=== PATIENT | female | born 1985 | race Caucasian/White ===

== ENCOUNTER → 2016-10-23 | Outpatient (CLI) | payer BC ==
[~2016-10-23] MED LIST: CIPR-212 PO; DOCU-168 PO; HYDR-4074 PO; LORA1TAB3 PO; NAPR220C11 PO; OMEP40CA PO; ONDA4TAB7 PO; POLY17PO6 PO; PROM25TA7 PO; SUCR1TAB20 PO
== END ==
LOC: LAB 09:49
PROVIDERS: ATTEND Obstetrics & Gynecology
DX: O00.90 Unspecified ectopic pregnancy without intrauterine pregnancy (principal)
CPT/HCPCS: 36415; 84702

== ENCOUNTER → 2016-11-21 | Outpatient (CLI) | payer BC, MEDICAID ==
--- NOTE | 2016-11-21 13:36 | DI ---
Indication: ITS.REASON: R10.2 PELVIC PAIN PROCEDURE: US PELVIC NON OB W/TRANS VAG: Encounter: Initial Comparison: None FINDINGS: Transvaginal and transabdominal pelvic imaging was performed. The uterus measures 6.7 x 4 x 5.2 cm. The parenchyma is homogeneous without fibroids. The endometrial stripe is thickened measuring up to 20 mm in thickness. There is no significant internal vascularity within the endometrium however. Both ovaries are identified. Sequela of the patient's reported left tubal ectopic is noted with a dilated cystic space present in or near the left ovary which could be a dilated fallopian tube. There is no significant surrounding hyperemia currently. There is a small amount of internal echogenic debris. The overall size of this lesion is 2.3 x 2.1 x 2.4 cm in size. Left ovary measures 3.8 x 2.4 x 3.9 The right ovary appears normal and measures 1.4 x 1.1 x 1.8 cm. Small amount of free fluid. Impression: Findings compatible with a recent left tubal ectopic . There is residual endometrial thickening or hemorrhage. .
== END ==
LOC: IMA 12:25
PROVIDERS: ATTEND Family Medicine
DX: R93.8 Abnormal findings on diagnostic imaging of other specified body structures (principal); Z87.59 Personal history of other complications of pregnancy, childbirth and the puerperium; R10.2 Pelvic and perineal pain